=== PATIENT | male | born 1995 | race Caucasian/White ===

== ENCOUNTER 2016-09-22 08:52 | Emergency (ER) | payer MEDICAID ==
[2016-09-22 09:19] LABS: BASOPHILS 0.1 % (0.0-2.0); EOSINOPHILS 1.8 % (0-7); HEMOGLOBIN 14.7 g/dL (13.5-17.5); IMMATURE GRANULOCYTES 0.7 % (0-5); LYMPHOCYTES 13.9 % (15-50); MCH 29.3 pg (26.0-34.0); MCHC 34.2 g/dL (31.0-37.0); MCV 85.7 fL (80.0-100.0); MEAN PLATELET VOLUME 11.5 fL (7.4-10.4); MONOCYTES 8.4 % (2-11); NEUTROPHILS 75.1 % (40-80); RBC 5.02 10x6/uL (4.20-6.10); RDW 13.7 % (11.5-14.5); WBC 9.5 10x3/uL (4.8-10.8)
[2016-09-22 09:29] LABS: UDS - AMPHET POSITIVE QUAL (NEGATIVE); UDS - BARB NEGATIVE QUAL (NEGATIVE); UDS - BENZO NEGATIVE QUAL (NEGATIVE); UDS - COCAINE NEGATIVE QUAL (NEGATIVE); UDS - METH NEGATIVE QUAL (NEGATIVE); UDS - OPIATE NEGATIVE QUAL (NEGATIVE); UDS - PCP NEGATIVE QUAL (NEGATIVE); UDS - THC POSITIVE QUAL (NEGATIVE)
[2016-09-22 09:29] LABS: PLATELET COUNT 152 10x3/uL (130-400)
[2016-09-22 09:32] LABS: APPEARANCE CLEAR (CLEAR); BILIRUBIN NEGATIVE (NEGATIVE); COLOR YELLOW (YELLOW); GLUCOSE NEGATIVE (NEGATIVE); KETONE NEGATIVE (NEGATIVE); LEUKOCYTE ESTERASE NEGATIVE (NEGATIVE); NITRITE NEGATIVE (NEGATIVE); PROTEIN NEGATIVE (NEGATIVE); UROBILINOGEN NORMAL (NORMAL)
[2016-09-22 09:33] LABS: ALKALINE PHOSPHATASE 76 U/L (46-116); ALT (SGPT) 29 U/L (10-68); BILIRUBIN - TOTAL 0.34 mg/dL (0.2-1.3); CALC OSMOLALITY 282 mosm/kg (275-300); CALCIUM 9.2 mg/dL (8.5-10.1); CARBON DIOXIDE 27.1 mmol/L (21.0-32.0); CHLORIDE - SERUM 106 mmol/L (98-107); CREATININE - SERUM 0.9 mg/dL (0.6-1.3); GLUCOSE 106 mg/dL (74-106); POTASSIUM - SERUM 4.3 mmol/L (3.5-5.1); SODIUM 143 mmol/L (136-145); UREA NITROGEN 7 mg/dL (7-18); eGFR NON AFRICAN AMERICAN > 90 mL/min (90-120)
== END 2016-09-22 10:37 | disposition home or self-care (01) ==
LOC: D.ER 08:52
PROVIDERS: Emergency Medicine
DX: R56.9 Unspecified convulsions (principal); F17.200 Nicotine dependence, unspecified, uncomplicated

== ENCOUNTER 2016-09-28 15:39 | Emergency (ER) | payer OTHER, MEDICAID | END 2016-09-28 17:03 | disposition home or self-care (01) | LOC: D.ER 15:39 | DX: S16.1XXA Strain of muscle, fascia and tendon at neck level, initial encounter (principal); V49.40XA Driver injured in collision with unspecified motor vehicles in traffic accident, initial encounter; Y93.89 Activity, other specified; Y92.410 Unspecified street and highway as the place of occurrence of the external cause; S29.012A Strain of muscle and tendon of back wall of thorax, initial encounter ==

== ENCOUNTER 2016-10-26 19:04 | Emergency (ER) | payer MEDICAID | END 2016-10-26 22:34 | disposition home or self-care (01) | LOC: D.ER 19:04 | DX: K02.9 Dental caries, unspecified (principal); K08.89 Other specified disorders of teeth and supporting structures ==

== ENCOUNTER 2016-12-04 21:18 | Emergency (ER) | payer MEDICAID ==
[2016-12-04 23:09] LABS: BASOPHILS 0.2 % (0-2); EOSINOPHILS 2.8 % (0-7); HEMATOCRIT 40.9 % (42.0-54.0); HEMOGLOBIN 14.3 g/dL (13.5-17.5); IMMATURE GRANULOCYTES 0.2 % (0-5); LYMPHOCYTES 17.9 % (15-50); MCH 29.8 pg (26.0-34.0); MCV 85.2 fL (80.0-100.0); MEAN PLATELET VOLUME 10.8 fL (7.4-10.4); MONOCYTES 7.7 % (2-11); NEUTROPHILS 71.2 % (40-80); PLATELET COUNT 181 10x3/uL (130-400); RDW 13.4 % (11.5-14.5)
[2016-12-04 23:23] LABS: ALBUMIN 3.8 g/dL (3.4-5.0); ALKALINE PHOSPHATASE 85 U/L (46-116); ALT (SGPT) 26 U/L (10-68); CALC OSMOLALITY 276 mosm/kg (275-300); CALCIUM 8.8 mg/dL (8.5-10.1); CARBON DIOXIDE 31.6 mmol/L (21.0-32.0); CHLORIDE - SERUM 102 mmol/L (98-107); CREATININE - SERUM 0.9 mg/dL (0.6-1.3); GLUCOSE 102 mg/dL (74-106); POTASSIUM - SERUM 3.5 mmol/L (3.5-5.1); PROTEIN - SERUM 6.9 g/dL (6.4-8.2); SODIUM 140 mmol/L (136-145); UREA NITROGEN 7 mg/dL (7-18); eGFR NON AFRICAN AMERICAN > 90 mL/min (90-120)
== END 2016-12-05 00:35 | disposition home or self-care (01) ==
LOC: D.ER 21:18
PROVIDERS: Physician Assistant Medical
DX: G40.909 Epilepsy, unspecified, not intractable, without status epilepticus (principal); B35.4 Tinea corporis; F17.200 Nicotine dependence, unspecified, uncomplicated

== ENCOUNTER 2017-03-06 21:57 | Emergency (ER) | payer MEDICAID | END 2017-03-06 23:25 | disposition home or self-care (01) | LOC: D.ER 21:57 | DX: S60.031A Contusion of right middle finger without damage to nail, initial encounter (principal); S60.041A Contusion of right ring finger without damage to nail, initial encounter; X58.XXXA Exposure to other specified factors, initial encounter; Y93.89 Activity, other specified; Y92.89 Other specified places as the place of occurrence of the external cause; F17.200 Nicotine dependence, unspecified, uncomplicated ==

== ENCOUNTER 2017-03-14 21:51 | Emergency (ER) | payer MEDICAID ==
[2017-03-14 23:44] LABS: HEMATOCRIT 37.7 % (42.0-54.0); HEMOGLOBIN 13.3 g/dL (13.5-17.5); LYMPHOCYTES 29.9 % (15-50); MCH 29.3 pg (26.0-34.0); MCHC 35.3 g/dL (31.0-37.0); MEAN PLATELET VOLUME 11.2 fL (7.4-10.4); NEUTROPHILS 62.8 % (40-80); PLATELET COUNT 179 10x3/uL (130-400); RBC 4.54 10x6/uL (4.20-6.10)
[2017-03-14 23:52] LABS: ALBUMIN 3.8 g/dL (3.4-5.0); ANION GAP 10.5 mmol/L (8-16); BILIRUBIN - TOTAL 0.5 mg/dL (0.2-1.3); CALCIUM 8.5 mg/dL (8.5-10.1); CARBON DIOXIDE 29.9 mmol/L (21.0-32.0); CREATININE - SERUM 1.4 mg/dL (0.6-1.3); POTASSIUM - SERUM 3.4 mmol/L (3.5-5.1); PROTEIN - SERUM 6.6 g/dL (6.4-8.2)
[2017-03-14 23:56] LABS: APPEARANCE CLEAR (CLEAR); BILIRUBIN NEGATIVE (NEGATIVE); COLOR YELLOW (YELLOW); GLUCOSE NEGATIVE (NEGATIVE); KETONE NEGATIVE (NEGATIVE); LEUKOCYTE ESTERASE NEGATIVE (NEGATIVE); NITRITE NEGATIVE (NEGATIVE); PROTEIN TRACE mg/dL (NEGATIVE); UROBILINOGEN NORMAL (NORMAL)
[2017-03-14 23:57] LABS: BACTERIA NONE SEEN /hpf (NONE SEEN); EPITHELIAL CELLS 0-5 /hpf (0-5); WHITE CELLS - URINE NSEEN /hpf (0-5)
[2017-03-14 23:58] LABS: UDS - AMPHET POSITIVE QUAL (NEGATIVE); UDS - BARB NEGATIVE QUAL (NEGATIVE); UDS - BENZO NEGATIVE QUAL (NEGATIVE); UDS - COCAINE NEGATIVE QUAL (NEGATIVE); UDS - METH NEGATIVE QUAL (NEGATIVE); UDS - OPIATE NEGATIVE QUAL (NEGATIVE); UDS - PCP NEGATIVE QUAL (NEGATIVE); UDS - THC POSITIVE QUAL (NEGATIVE)
== END 2017-03-15 06:31 | disposition home or self-care (01) ==
LOC: D.ER 21:51
PROVIDERS: Emergency Medicine; Nurse Practitioner Acute Care
DX: F33.9 Major depressive disorder, recurrent, unspecified (principal); F15.10 Other stimulant abuse, uncomplicated; F12.10 Cannabis abuse, uncomplicated; R45.850 Homicidal ideations; F17.200 Nicotine dependence, unspecified, uncomplicated

== ENCOUNTER 2017-04-08 16:58 | Emergency (ER) | payer MEDICAID | END 2017-04-08 18:55 | disposition home or self-care (01) | LOC: D.ER 16:58 | DX: S99.921A Unspecified injury of right foot, initial encounter (principal); W20.8XXA Other cause of strike by thrown, projected or falling object, initial encounter; Y93.89 Activity, other specified; Y92.029 Unspecified place in mobile home as the place of occurrence of the external cause; M79.671 Pain in right foot; F17.200 Nicotine dependence, unspecified, uncomplicated ==

== ENCOUNTER 2017-06-08 17:11 | Emergency (ER) | payer MEDICAID | END 2017-06-08 18:50 | disposition home or self-care (01) | LOC: D.ER 17:11 | DX: S43.402A Unspecified sprain of left shoulder joint, initial encounter (principal); X58.XXXA Exposure to other specified factors, initial encounter; Y93.89 Activity, other specified; Y92.029 Unspecified place in mobile home as the place of occurrence of the external cause; K02.9 Dental caries, unspecified; K08.89 Other specified disorders of teeth and supporting structures; G40.909 Epilepsy, unspecified, not intractable, without status epilepticus; F17.200 Nicotine dependence, unspecified, uncomplicated ==

== ENCOUNTER 2017-07-10 00:42 | Emergency (ER) | payer MEDICAID | END 2017-07-10 01:01 | disposition home or self-care (01) | LOC: D.ER 00:42 | DX: K02.9 Dental caries, unspecified (principal); K08.89 Other specified disorders of teeth and supporting structures; K05.10 Chronic gingivitis, plaque induced ==

== ENCOUNTER 2017-08-10 19:42 | Emergency (ER) | payer MEDICAID ==
[2017-08-10 20:23] LABS: UDS - AMPHET NEGATIVE QUAL (NEGATIVE); UDS - BARB NEGATIVE QUAL (NEGATIVE); UDS - BENZO NEGATIVE QUAL (NEGATIVE); UDS - COCAINE NEGATIVE QUAL (NEGATIVE); UDS - OPIATE POSITIVE QUAL (NEGATIVE); UDS - PCP NEGATIVE QUAL (NEGATIVE); UDS - THC NEGATIVE QUAL (NEGATIVE)
[2017-08-10 20:38] LABS: BASOPHILS 0.2 % (0-2); EOSINOPHILS 3.8 % (0-7); HEMOGLOBIN 15.5 g/dL (13.5-17.5); IMMATURE GRANULOCYTES 0.3 % (0-5); LYMPHOCYTES 41.8 % (15-50); MCH 30.2 pg (26.0-34.0); MCHC 34.4 g/dL (31.0-37.0); MCV 87.7 fL (80.0-100.0); MEAN PLATELET VOLUME 12.1 fL (7.4-10.4); MONOCYTES 7.4 % (2-11); NEUTROPHILS 46.5 % (40-80); PLATELET COUNT 191 10x3/uL (130-400); RBC 5.13 10x6/uL (4.20-6.10); RDW 13.6 % (11.5-14.5); WBC 6.5 10x3/uL (4.8-10.8)
[2017-08-10 20:47] LABS: APPEARANCE CLEAR (CLEAR); BILIRUBIN NEGATIVE (NEGATIVE); COLOR YELLOW (YELLOW); GLUCOSE NEGATIVE (NEGATIVE); KETONE NEGATIVE (NEGATIVE); NITRITE NEGATIVE (NEGATIVE); PROTEIN NEGATIVE (NEGATIVE); SPECIFIC GRAVITY 1.025 (1.005-1.020); UROBILINOGEN NORMAL (NORMAL)
[2017-08-10 20:50] LABS: BACTERIA FEW /hpf (NONE SEEN)
[2017-08-10 21:00] LABS: ALKALINE PHOSPHATASE 63 U/L (46-116); ALT (SGPT) 15 U/L (10-68); BILIRUBIN - TOTAL 0.27 mg/dL (0.2-1.3); CALC OSMOLALITY 273 mosm/kg (275-300); CALCIUM 8.7 mg/dL (8.5-10.1); CARBON DIOXIDE 28.4 mmol/L (21.0-32.0); CHLORIDE - SERUM 103 mmol/L (98-107); CREATININE - SERUM 1.1 mg/dL (0.6-1.3); GLUCOSE 92 mg/dL (74-106); POTASSIUM - SERUM 3.3 mmol/L (3.5-5.1); PROTEIN - SERUM 6.7 g/dL (6.4-8.2); SODIUM 137 mmol/L (136-145); UREA NITROGEN 13 mg/dL (7-18); eGFR NON AFRICAN AMERICAN 88 mL/min (90-120)
== END 2017-08-10 21:58 | disposition home or self-care (01) ==
LOC: D.ER 19:42
PROVIDERS: Emergency Medicine
DX: G40.409 Other generalized epilepsy and epileptic syndromes, not intractable, without status epilepticus (principal); Z91.14 Patient's other noncompliance with medication regimen; S09.90XA Unspecified injury of head, initial encounter; W19.XXXA Unspecified fall, initial encounter; Y93.89 Activity, other specified; Y92.019 Unspecified place in single-family (private) house as the place of occurrence of the external cause; S16.1XXA Strain of muscle, fascia and tendon at neck level, initial encounter; S00.03XA Contusion of scalp, initial encounter; F17.200 Nicotine dependence, unspecified, uncomplicated

== ENCOUNTER 2017-08-24 12:04 | Emergency (ER) | payer MEDICAID | END 2017-08-24 16:16 | disposition home or self-care (01) | LOC: D.ER 12:04 | DX: K08.89 Other specified disorders of teeth and supporting structures (principal); K02.9 Dental caries, unspecified; K05.10 Chronic gingivitis, plaque induced; S02.5XXA Fracture of tooth (traumatic), initial encounter for closed fracture; X58.XXXA Exposure to other specified factors, initial encounter; Y93.89 Activity, other specified; Y92.019 Unspecified place in single-family (private) house as the place of occurrence of the external cause; F17.200 Nicotine dependence, unspecified, uncomplicated ==

== ENCOUNTER 2017-09-12 19:05 | Emergency (ER) | payer MEDICAID ==
[2017-11-11 11:04] VITALS: BMI 21.0
== END 2017-09-12 22:45 | disposition home or self-care (01) ==
LOC: D.ER 19:05
DX: S91.104A Unspecified open wound of right lesser toe(s) without damage to nail, initial encounter (principal); W34.00XA Accidental discharge from unspecified firearms or gun, initial encounter; Y93.89 Activity, other specified; Y92.821 Forest as the place of occurrence of the external cause; S92.521A Displaced fracture of middle phalanx of right lesser toe(s), initial encounter for closed fracture; S92.531A Displaced fracture of distal phalanx of right lesser toe(s), initial encounter for closed fracture; F17.200 Nicotine dependence, unspecified, uncomplicated

== ENCOUNTER 2017-09-13 21:22 | Emergency (ER) | payer MEDICAID ==
[2017-11-11 11:04] VITALS: BMI 21.0
== END 2017-09-13 23:51 | disposition home or self-care (01) ==
LOC: D.ER 21:22
DX: S91.311D Laceration without foreign body, right foot, subsequent encounter (principal); L08.9 Local infection of the skin and subcutaneous tissue, unspecified; X58.XXXD Exposure to other specified factors, subsequent encounter

== ENCOUNTER 2017-09-25 17:17 | Emergency (ER) | payer MEDICAID ==
[2017-11-11 11:04] VITALS: BMI 21.0
== END 2017-09-25 19:24 | disposition home or self-care (01) ==
LOC: D.ER 17:17
DX: S99.921D Unspecified injury of right foot, subsequent encounter (principal); X58.XXXD Exposure to other specified factors, subsequent encounter; M79.674 Pain in right toe(s); F17.200 Nicotine dependence, unspecified, uncomplicated

== ENCOUNTER → 2017-10-30 14:13 | Outpatient (CLI) | payer MEDICAID ==
[~2017-10-30 14:13] MED LIST: HYDROCODONE-APA1 TAB PO; KEPPRA250 MG PO; KEPPRA750 MG PO
[2017-11-11 11:04] VITALS: BMI 21.0
== END | disposition home or self-care (01) ==
LOC: D.CT 10-27 13:30
DX: R22.41 Localized swelling, mass and lump, right lower limb (principal); T14.8XXA Other injury of unspecified body region, initial encounter; S92.531G Displaced fracture of distal phalanx of right lesser toe(s), subsequent encounter for fracture with delayed healing; X58.XXXA Exposure to other specified factors, initial encounter; Y93.89 Activity, other specified; Y92.89 Other specified places as the place of occurrence of the external cause

== ENCOUNTER 2017-11-10 07:49 | Inpatient (IN) | payer MEDICAID ==
[~2017-11-10] VITALS: Ht 182.9 cm; Wt 70.3 kg
[2017-11-10 10:21] LABS: BASOPHILS 0.1 % (0-2); EOSINOPHILS 0.6 % (0-7); HEMATOCRIT 44.4 % (42.0-54.0); HEMOGLOBIN 15.5 g/dL (13.5-17.5); IMMATURE GRANULOCYTES 0.3 % (0-5); MCH 30.5 pg (26.0-34.0); MCHC 34.9 g/dL (31.0-37.0); MCV 87.2 fL (80.0-100.0); MEAN PLATELET VOLUME 10.5 fL (7.4-10.4); MONOCYTES 8.8 % (2-11); NEUTROPHILS 68.2 % (40-80); PLATELET COUNT 220 10x3/uL (130-400); RBC 5.09 10x6/uL (4.20-6.10); RDW 13.5 % (11.5-14.5); WBC 7.1 10x3/uL (4.8-10.8)
[2017-11-10 10:36] LABS: ALKALINE PHOSPHATASE 71 U/L (46-116); ALT (SGPT) 23 U/L (10-68); CALC OSMOLALITY 281 mosm/kg (275-300); CALCIUM 8.9 mg/dL (8.5-10.1); CARBON DIOXIDE 27.5 mmol/L (21.0-32.0); CHLORIDE - SERUM 107 mmol/L (98-107); GLUCOSE 99 mg/dL (74-106); POTASSIUM - SERUM 3.7 mmol/L (3.5-5.1); PROTEIN - SERUM 6.9 g/dL (6.4-8.2); SODIUM 141 mmol/L (136-145); UREA NITROGEN 14 mg/dL (7-18); eGFR NON AFRICAN AMERICAN > 90 mL/min (90-120)
[2017-11-10 19:48] VITALS: BP 136/72
[2017-11-10] MEDS ORDERED: KEPPRA250 MG PO (20:00)
[2017-11-10] MEDS ORDERED: HYDROCODONE-APA1 TAB PO (20:01)
[2017-11-10 21:50] VITALS: BP 145/99; BMI 21.0
[2017-11-10 23:54] VITALS: BP 107/52
[2017-11-11 04:29] VITALS: BP 131/62
[2017-11-11 08:40] VITALS: BP 134/89
[2017-11-11 10:15] VITALS: BMI 21.0
[2017-11-11] MEDS ORDERED: KEPPRA750 MG PO (11:00)
[2017-11-11 11:04] VITALS: Ht 182.9 cm; Wt 70.3 kg
[2017-11-11 12:36] VITALS: BP 149/92
== END 2017-11-11 12:45 | disposition home or self-care (01) | DRG 556 ==
LOC: D.ER 07:49 → D.EDHOLD 12:18 → D.MS 12:18 → D.EDHOLD 15:34 → D.MS 18:02
PROVIDERS: Emergency Medicine
DX: M79.671 Pain in right foot (principal)

== ENCOUNTER 2017-11-19 02:18 | Emergency (ER) | payer MEDICAID ==
[2017-11-11 11:04] VITALS: BMI 21.0
== END 2017-11-19 03:11 | disposition home or self-care (01) ==
LOC: D.ER 02:18
DX: H66.91 Otitis media, unspecified, right ear (principal)

== ENCOUNTER 2017-11-19 18:24 | Emergency (ER) | payer MEDICAID ==
[2017-11-11 11:04] VITALS: BMI 21.0
== END 2017-11-19 21:40 | disposition home or self-care (01) ==
LOC: D.ER 18:24
DX: H72.91 Unspecified perforation of tympanic membrane, right ear (principal); R05 Cough; R50.9 Fever, unspecified; F17.200 Nicotine dependence, unspecified, uncomplicated

== ENCOUNTER 2018-01-01 20:39 | Emergency (ER) | payer MEDICAID ==
[~2018-01-01] VITALS: Ht 182.9 cm; Wt 72.6 kg
[2018-01-01 21:15] VITALS: Ht 182.9 cm; Wt 72.6 kg
[2018-01-01 22:16] VITALS: BP 120/77
[2018-02-08] MEDS ORDERED: KEPPRA500 MG PO
[2018-02-08] MEDS ORDERED: NORCO 7.5/325 T1 TA1 PO
== END 2018-01-01 22:18 | disposition home or self-care (01) ==
LOC: D.ER 20:39
DX: Z00.00 Encounter for general adult medical examination without abnormal findings (principal); F17.200 Nicotine dependence, unspecified, uncomplicated; F90.9 Attention-deficit hyperactivity disorder, unspecified type

== ENCOUNTER 2018-02-08 21:16 | Emergency (ER) | payer MEDICAID ==
[~2018-02-08] VITALS: Ht 182.9 cm; Wt 65.9 kg
[~2018-02-08 21:16] MED LIST changes: +KEPPRA500 MG PO; +NORCO 7.5/325 T1 TA1 PO
[2018-02-08 21:20] VITALS: Ht 182.9 cm; Wt 65.9 kg
[2018-02-09 00:08] LABS: HEMATOCRIT 44.6 % (42.0-54.0); HEMOGLOBIN 15.4 g/dL (13.5-17.5); LYMPHOCYTES 10.1 % (15-50); MCH 29.4 pg (26.0-34.0); MCHC 34.5 g/dL (31.0-37.0); MCV 85.1 fL (80.0-100.0); MEAN PLATELET VOLUME 11.1 fL (7.4-10.4); NEUTROPHILS 85.6 % (40-80); PLATELET COUNT 216 10x3/uL (130-400); RBC 5.24 10x6/uL (4.20-6.10); RDW 13.1 % (11.5-14.5); WBC 12.3 10x3/uL (4.8-10.8)
[2018-02-09 00:23] LABS: ALBUMIN 3.9 g/dL (3.4-5.0); ALKALINE PHOSPHATASE 70 U/L (46-116); ALT (SGPT) 17 U/L (10-68); BILIRUBIN - TOTAL 0.29 mg/dL (0.2-1.3); CALC OSMOLALITY 282 mosm/kg (275-300); CALCIUM 8.6 mg/dL (8.5-10.1); CHLORIDE - SERUM 105 mmol/L (98-107); CREATINE KINASE 269 UL (21-232); GLUCOSE 102 mg/dL (74-106); POTASSIUM - SERUM 3.8 mmol/L (3.5-5.1); PROTEIN - SERUM 7.3 g/dL (6.4-8.2); SODIUM 142 mmol/L (136-145); UREA NITROGEN 13 mg/dL (7-18); eGFR NON AFRICAN AMERICAN > 90 mL/min (90-120)
[2018-02-09 00:25] LABS: CKMB 2.8 U/L (0.0-3.6)
[2018-02-09 01:30] VITALS: BP 140/91
== END 2018-02-09 01:31 | disposition home or self-care (01) ==
LOC: D.ER 21:16
PROVIDERS: Emergency Medicine
DX: S09.90XA Unspecified injury of head, initial encounter (principal); Y04.2XXA Assault by strike against or bumped into by another person, initial encounter; Y93.89 Activity, other specified; Y92.89 Other specified places as the place of occurrence of the external cause; S49.92XA Unspecified injury of left shoulder and upper arm, initial encounter; S69.91XA Unspecified injury of right wrist, hand and finger(s), initial encounter; S00.03XA Contusion of scalp, initial encounter; G40.909 Epilepsy, unspecified, not intractable, without status epilepticus; F17.200 Nicotine dependence, unspecified, uncomplicated

== ENCOUNTER 2018-03-08 20:31 | Emergency (ER) | payer MEDICAID ==
[~2018-03-08] VITALS: Ht 182.9 cm; Wt 63.6 kg
[2018-03-08 20:44] VITALS: Ht 182.9 cm; Wt 63.6 kg
[2018-03-08] MEDS ORDERED: NORCO 7.5/325 T1 TA1 PO (22:14)
[2018-03-08 22:18] VITALS: BP 136/87
== END 2018-03-08 22:23 | disposition home or self-care (01) ==
LOC: D.ER 20:31
DX: S49.91XA Unspecified injury of right shoulder and upper arm, initial encounter (principal); W18.30XA Fall on same level, unspecified, initial encounter; Y93.89 Activity, other specified; Y92.019 Unspecified place in single-family (private) house as the place of occurrence of the external cause; S50.01XA Contusion of right elbow, initial encounter; G40.909 Epilepsy, unspecified, not intractable, without status epilepticus; F17.200 Nicotine dependence, unspecified, uncomplicated

== ENCOUNTER 2018-03-30 15:20 | Emergency (ER) | payer MEDICAID ==
[~2018-03-30] VITALS: Ht 182.9 cm; Wt 68.2 kg
[2018-03-30 16:03] VITALS: BP 141/89; Ht 182.9 cm; Wt 68.2 kg
[2018-03-30] MEDS ORDERED: NORCO 10-325 TA1 TAB PO (16:57)
[2018-03-30] MEDS ORDERED: OMNICEF300 MG PO (16:57)
== END 2018-03-30 17:12 | disposition home or self-care (01) ==
LOC: D.ER 15:20
DX: H66.91 Otitis media, unspecified, right ear (principal); H72.91 Unspecified perforation of tympanic membrane, right ear; J01.90 Acute sinusitis, unspecified; S02.5XXA Fracture of tooth (traumatic), initial encounter for closed fracture; X58.XXXA Exposure to other specified factors, initial encounter; Y93.9 Activity, unspecified; Y92.9 Unspecified place or not applicable; K08.89 Other specified disorders of teeth and supporting structures; R09.89 Other specified symptoms and signs involving the circulatory and respiratory systems; R05 Cough; F17.200 Nicotine dependence, unspecified, uncomplicated

== ENCOUNTER 2018-04-01 00:49 | Emergency (ER) | payer MEDICAID ==
[~2018-04-01] VITALS: Ht 182.9 cm; Wt 68.2 kg
[~2018-04-01 00:49] MED LIST changes: +NORCO 10-325 TA1 TAB PO; +OMNICEF300 MG PO
[2018-04-01 00:52] VITALS: Ht 182.9 cm; Wt 68.2 kg
[2018-04-01 01:21] VITALS: BP 163/101
== END 2018-04-01 01:23 | disposition home or self-care (01) ==
LOC: D.ER 00:49
DX: K02.9 Dental caries, unspecified (principal); K08.89 Other specified disorders of teeth and supporting structures; G40.909 Epilepsy, unspecified, not intractable, without status epilepticus; F17.200 Nicotine dependence, unspecified, uncomplicated

== ENCOUNTER 2018-04-04 07:52 | Emergency (ER) | payer MEDICAID ==
[~2018-04-04] VITALS: Ht 182.9 cm; Wt 68.2 kg
[2018-04-04 08:08] VITALS: BP 136/87; Ht 182.9 cm; Wt 68.2 kg
[2018-04-04] MEDS ORDERED: TORADOL10 MG PO (10:16)
[2018-04-04] MEDS ORDERED: CLEOCIN HCL300 MG PO (10:16)
== END 2018-04-04 10:40 | disposition home or self-care (01) ==
LOC: D.ER 07:52
DX: K02.9 Dental caries, unspecified (principal); K08.89 Other specified disorders of teeth and supporting structures; H92.01 Otalgia, right ear; G40.909 Epilepsy, unspecified, not intractable, without status epilepticus; F17.200 Nicotine dependence, unspecified, uncomplicated

== ENCOUNTER 2018-04-26 14:45 | Emergency (ER) | payer MEDICAID ==
[~2018-04-26] VITALS: Ht 182.9 cm; Wt 68.2 kg
[~2018-04-26 14:45] MED LIST changes: +CLEOCIN HCL300 MG PO; +TORADOL10 MG PO
[2018-04-26 14:49] VITALS: BP 162/93; Ht 182.9 cm; Wt 68.2 kg
[2018-04-26] MEDS ORDERED: NAPROXEN250 MG PO (15:55)
[2018-04-26] MEDS ORDERED: CLEOCIN HCL300 MG PO (15:55)
== END 2018-04-26 16:23 | disposition home or self-care (01) ==
LOC: D.ER 14:45
DX: K04.7 Periapical abscess without sinus (principal); R22.9 Localized swelling, mass and lump, unspecified; G40.909 Epilepsy, unspecified, not intractable, without status epilepticus; F17.200 Nicotine dependence, unspecified, uncomplicated

== ENCOUNTER 2018-06-05 23:04 | Emergency (ER) | payer MEDICAID ==
[~2018-06-05] VITALS: Ht 182.9 cm; Wt 75.0 kg
[~2018-06-05 23:04] MED LIST changes: +NAPROXEN250 MG PO
[2018-06-05 23:30] VITALS: Ht 182.9 cm; Wt 75.0 kg
[2018-06-06] MEDS ORDERED: EC-NAPROSYN500 MG PO (00:03)
[2018-06-06 00:19] VITALS: BP 140/90
== END 2018-06-06 00:15 | disposition home or self-care (01) ==
LOC: D.ER 23:04
DX: S90.32XA Contusion of left foot, initial encounter (principal); W20.8XXA Other cause of strike by thrown, projected or falling object, initial encounter; Y93.89 Activity, other specified; Y92.89 Other specified places as the place of occurrence of the external cause; G40.909 Epilepsy, unspecified, not intractable, without status epilepticus; F17.200 Nicotine dependence, unspecified, uncomplicated

== ENCOUNTER 2019-01-14 23:10 | Emergency (ER) | payer MEDICAID ==
[~2019-01-14] VITALS: Ht 182.9 cm; Wt 84.1 kg
[~2019-01-14 23:10] MED LIST changes: +EC-NAPROSYN500 MG PO
[2019-01-14 23:18] VITALS: Ht 182.9 cm; Wt 84.1 kg
[2019-01-15 00:20] LABS: HEMATOCRIT 49.4 % (42.0-54.0); HEMOGLOBIN 17.8 g/dL (13.5-17.5); MCH 30.3 pg (26.0-34.0); MEAN PLATELET VOLUME 12.3 fL (7.4-10.4); PLATELET COUNT 192 10x3/uL (130-400); RBC 5.88 10x6/uL (4.20-6.10); RDW 13.6 % (11.5-14.5)
[2019-01-15 00:34] LABS: ALBUMIN 4.8 g/dL (3.4-5.0); ALKALINE PHOSPHATASE 94 U/L (46-116); ALT (SGPT) 30 U/L (10-68); BILIRUBIN - TOTAL 0.34 mg/dL (0.2-1.3); CALC OSMOLALITY 286 mosm/kg (275-300); CALCIUM 9.2 mg/dL (8.5-10.1); CARBON DIOXIDE 26.1 mmol/L (21.0-32.0); CHLORIDE - SERUM 104 mmol/L (98-107); CKMB 4.1 U/L (0.0-3.6); CREATINE KINASE 423 UL (21-232); CREATININE - SERUM 1.3 mg/dL (0.6-1.3); GLUCOSE 96 mg/dL (74-106); MAGNESIUM - SERUM 2.3 mg/dL (1.8-2.4); PROTEIN - SERUM 8.2 g/dL (6.4-8.2); SODIUM 142 mmol/L (136-145); UREA NITROGEN 23 mg/dL (7-18); eGFR NON AFRICAN AMERICAN 71 mL/min (90-120)
[2019-01-15 00:40] LABS: TROPONIN-I < 0.017 ng/mL (0.000-0.060)
[2019-01-15 00:48] LABS: APPEARANCE CLEAR (CLEAR); BILIRUBIN NEGATIVE (NEGATIVE); COLOR YELLOW (YELLOW); GLUCOSE NEGATIVE (NEGATIVE); KETONE NEGATIVE (NEGATIVE); NITRITE NEGATIVE (NEGATIVE); PROTEIN TRACE mg/dL (NEGATIVE); UROBILINOGEN NORMAL (NORMAL)
[2019-01-15 00:50] LABS: BACTERIA MODERATE /hpf (NONE SEEN); EPITHELIAL CELLS 0-5 /hpf (0-5); RED CELLS - URINE 0-5 /hpf (0-5); WHITE CELLS - URINE 0-5 /hpf (0-5)
[2019-01-15 00:53] LABS: UDS - AMPHET POSITIVE QUAL (NEGATIVE); UDS - BARB NEGATIVE QUAL (NEGATIVE); UDS - BENZO POSITIVE QUAL (NEGATIVE); UDS - COCAINE POSITIVE QUAL (NEGATIVE); UDS - OPIATE NEGATIVE QUAL (NEGATIVE); UDS - PCP NEGATIVE QUAL (NEGATIVE); UDS - THC POSITIVE QUAL (NEGATIVE)
[2019-01-15] MEDS ORDERED: KEPPRA500 MG PO (01:08)
[2019-01-15 01:11] LABS: LYMPHOCYTES 17 % (15-50); MONOCYTES 2 % (2-11); NEUTROPHILS 80 % (40-80); PLATELET ESTIMATE DECREASED
[2019-01-15 01:23] VITALS: BP 182/97
== END 2019-01-15 01:23 | disposition home or self-care (01) ==
LOC: D.ER 23:10
PROVIDERS: Family Medicine
DX: G40.909 Epilepsy, unspecified, not intractable, without status epilepticus (principal); F15.19 Other stimulant abuse with unspecified stimulant-induced disorder

== ENCOUNTER 2019-11-02 21:16 | Emergency (ER) | payer MEDICAID ==
[~2019-11-02] VITALS: Ht 182.9 cm; Wt 77.3 kg
[2019-11-02 21:23] VITALS: Ht 182.9 cm; Wt 77.3 kg
[2019-11-02] MEDS ORDERED: KEFLEX500 MG PO (21:47)
[2019-11-02] MEDS ORDERED: NAPROSYN500 MG PO (21:47)
[2019-11-02 21:59] VITALS: BP 125/77
== END 2019-11-02 22:00 | disposition home or self-care (01) ==
LOC: D.ER 21:16
DX: S61.214A Laceration without foreign body of right ring finger without damage to nail, initial encounter (principal); W31.89XA Contact with other specified machinery, initial encounter; Y93.9 Activity, unspecified; Y92.9 Unspecified place or not applicable

== ENCOUNTER 2020-01-27 14:21 | Emergency (ER) | payer OTHER ==
[~2020-01-27] VITALS: Ht 182.9 cm; Wt 79.5 kg
[~2020-01-27 14:21] MED LIST changes: +KEFLEX500 MG PO; +NAPROSYN500 MG PO
[2020-01-27 14:28] VITALS: Ht 182.9 cm; Wt 79.5 kg
[2020-01-27] MEDS ORDERED: KEFLEX500 MG PO (17:00)
[2020-01-27] MEDS ORDERED: VOLTAREN75 MG PO (17:00)
[2020-01-27 17:43] VITALS: BP 129/73
== END 2020-01-27 17:44 | disposition home or self-care (01) ==
LOC: D.ER 14:21
DX: S91.312A Laceration without foreign body, left foot, initial encounter (principal); W45.8XXA Other foreign body or object entering through skin, initial encounter; Y93.9 Activity, unspecified; Y92.9 Unspecified place or not applicable

== ENCOUNTER 2020-03-27 07:22 | Emergency (ER) | payer OTHER ==
[~2020-03-27] VITALS: Ht 182.9 cm; Wt 79.5 kg
[~2020-03-27 07:22] MED LIST changes: +VOLTAREN75 MG PO
[2020-03-27 07:29] VITALS: BP 145/82; Ht 182.9 cm; Wt 79.5 kg
[2020-03-27 08:34] LABS: ANION GAP 14.2 mmol/L (8-16); CALCIUM 8.7 mg/dL (8.5-10.1); CARBON DIOXIDE 23.2 mmol/L (21.0-32.0); CREATININE - SERUM 1.6 mg/dL (0.6-1.3); POTASSIUM - SERUM 3.4 mmol/L (3.5-5.1)
[2020-03-27 08:39] LABS: BASOPHILS 0.1 % (0-2); EOSINOPHILS 0.9 % (0-7); HEMOGLOBIN 15.2 g/dL (13.5-17.5); IMMATURE GRANULOCYTES 0.3 % (0-5); LYMPHOCYTES 10.2 % (15-50); MCH 29.5 pg (26.0-34.0); MCHC 33.8 g/dL (31.0-37.0); MCV 87.2 fL (80.0-100.0); MEAN PLATELET VOLUME 11.4 fL (7.4-10.4); MONOCYTES 10.6 % (2-11); NEUTROPHILS 77.9 % (40-80); PLATELET COUNT 189 10x3/uL (130-400); RBC 5.16 10x6/uL (4.20-6.10); RDW 13.3 % (11.5-14.5); WBC 10.9 10x3/uL (4.8-10.8)
[2020-03-27 08:40] LABS: ALBUMIN 3.8 g/dL (3.4-5.0); BILIRUBIN - TOTAL 0.23 mg/dL (0.2-1.3); C-REACTIVE PROTEIN 4.1 mg/dL (0.0-0.9); PROTEIN - SERUM 6.8 g/dL (6.4-8.2)
[2020-03-27] MEDS ORDERED: FLUTICASONE PRO16 GM NASAL (11:04)
[2020-03-27] MEDS ORDERED: CLEOCIN HCL300 MG PO (11:04)
== END 2020-03-27 11:35 | disposition home or self-care (01) ==
LOC: D.ER 07:22
PROVIDERS: Family Medicine
DX: R22.9 Localized swelling, mass and lump, unspecified (principal); J01.90 Acute sinusitis, unspecified; Z72.0 Tobacco use; R09.81 Nasal congestion

== ENCOUNTER 2020-10-24 07:42 | Observation (INO) | payer OTHER ==
[~2020-10-24] VITALS: Ht 182.9 cm; Wt 72.7 kg
[2020-10-24] VITALS (13 sets, daily range): BP systolic 91–127; BP diastolic 50–83; Ht 182.9 cm; Wt 72.7 kg
[~2020-10-24 07:42] MED LIST changes: +FLUTICASONE PRO16 GM NASAL; +HYDROCODON-ACE1 EAC7 PO
[2020-10-24 08:01] LABS: BASOPHILS 0.3 % (0-2); EOSINOPHILS 2.5 % (0-7); HEMATOCRIT 47.8 % (42.0-54.0); HEMOGLOBIN 16.1 g/dL (13.5-17.5); IMMATURE GRANULOCYTES 1.6 % (0-5); LYMPHOCYTE ABS# 1.71 10x3/uL (1.32-3.57); LYMPHOCYTES 24.1 % (15-50); MCH 29.1 pg (26.0-34.0); MCHC 33.7 g/dL (31.0-37.0); MCV 86.4 fL (80.0-100.0); MONOCYTES 11.1 % (2-11); NEUTROPHIL ABS# 4.28 10x3/uL (1.78-5.38); NEUTROPHILS 60.4 % (40-80); RBC 5.53 10x6/uL (4.20-6.10); RDW 13.4 % (11.5-14.5); WBC 7.1 10x3/uL (4.8-10.8)
[2020-10-24 08:02] LABS: PLATELET COUNT 263 10x3/uL (130-400)
--- NOTE | 2020-10-24 08:06 | NUR ---
CALL TO POISON CONTROL ON PT. SHE STATES TO HAVE PT SIP ON WATER TO SEE HOW HE TOLERATES IT , PROPABLE GI CONSULT FOR THIS PT. DUE TO CAUSTIC NATURE OF SUBSTANCES HE MIGHT HAVE DRANK. PT HEAVING IN TRIAGE STATES HE VOMITED A LOT AT HOME, THAT IS WHAT WOKE HIM UP.
--- NOTE | 2020-10-24 08:09 | NUR ---
PATIENT GIVEN 2ND CUP OF WATER FOR PO CHALLENGE. TOLERATING WELL. NO AIRWAY COMPLICATIONS OR TROUBLE BREATHING. GCS 15. REPORTS NUMBNESS TO TONGUE AND MOUTH, AND PAIN TO THROAT AND STOMACH. ALSO STATES HE WAS VOMITING CHUNKY EMESIS AT HOME. DENIES COFFEE GROUNDS OR BLOOD.
[2020-10-24 08:15] LABS: ANION GAP 12.1 mmol/L (8-16); CALCIUM 9.3 mg/dL (8.5-10.1); CARBON DIOXIDE 29.9 mmol/L (21.0-32.0); CREATININE - SERUM 1.3 mg/dL (0.6-1.3)
[2020-10-24 08:19] LABS: UDS - AMPHET POSITIVE QUAL (NEGATIVE); UDS - BARB NEGATIVE QUAL (NEGATIVE); UDS - BENZO NEGATIVE QUAL (NEGATIVE); UDS - COCAINE NEGATIVE QUAL (NEGATIVE); UDS - OPIATE NEGATIVE QUAL (NEGATIVE); UDS - PCP NEGATIVE QUAL (NEGATIVE); UDS - THC POSITIVE QUAL (NEGATIVE)
[2020-10-24 08:19] LABS: ALBUMIN 4.1 g/dL (3.4-5.0); BILIRUBIN - TOTAL 0.44 mg/dL (0.2-1.3); MAGNESIUM - SERUM 2.3 mg/dL (1.8-2.4); PROTEIN - SERUM 7.6 g/dL (6.4-8.2)
[2020-10-24 08:20] LABS: BILIRUBIN NEGATIVE (NEGATIVE); KETONE NEGATIVE (NEGATIVE); NITRITE NEGATIVE (NEGATIVE); UROBILINOGEN NORMAL mg/dL (< 2)
[2020-10-24 08:21] LABS: SQUAMOUS EPITHELIAL 0-5 HPF (0-4); WHITE CELLS - URINE 0-5 HPF (0-1)
--- NOTE | 2020-10-24 09:02 | NUR ---
PATIENT APPEARS DROWSY, PERRLA 4MM, DENIES RECREATIONAL DRUG USE. STATES ONLY HOME MEDICATION TO BE KEPPRA DUE TO HX OF SEIZURES. NAD. AIRWAY PATENT NO DIFFICULTY BREATHING.
--- NOTE | 2020-10-24 09:21 | NUR ---
REPORT GIVEN TO ICU FOR BED 2304.
--- NOTE | 2020-10-24 09:33 | NUR ---
PATIENT TAKEN TO ICU ROOM 2304 AT 0925. STABLE, VITALS SIGNS WNL, GCS 15, NAD. BELONGINGS TAKEN WITH PATIENT INCLUDING BLACK [place], SWEAT PANTS, TENNIS SHOES. NO WALLET OR PHONE.
--- NOTE | 2020-10-24 10:26 | NUR ---
REC'D PT TO ICU. ALL MONITORING EQUIPMENT ATTACHED AND ALARMS SET. VSS, NSR PEAKED T WAVE NOTED ON ECG. DR LOPEZ HERE. PT GRANDMOTHER IN ROOM.
--- NOTE | 2020-10-24 19:26 | NUR ---
RECEIVED BEDSIDE REPORT. ROUNDING COMPLETE. PATIENT IS ALERT AND ORIENTED, RESTING COMFORTABLY IN BED. RESPIRATIONS ARE EVEN AND UNLABORED. NO S/S OF DISTRESS. NO C/O PAIN. CALL LIGHT WITHIN REACH. WILL CPOC.
--- NOTE | 2020-10-24 23:15 | NUR ---
ASSUMED CARE OF PATIENT. ASSESSMENT PERFORMED AT THIS TIME. PATIENT REQUESTING SOMETHING FOR ANXIETY.
[2020-10-25] VITALS (10 sets, daily range): BP systolic 96–127; BP diastolic 52–79
--- NOTE | 2020-10-25 | NUR ---
CALL TO PROVIDER, MEDS OBTAINED FOR INSOMNIA. ADMINISTERED BENADRYL 25 MG IVP PER ORDER. PATIENT TOLERATED WELL. PROVIDED EDUCATION ABOUT EGD TO PATIENT. PATIENT COMFORTED BY INFORMATION PROVIDED. DENIES FURTHER NEEDS AT THIS TIME. REMINIDED OF NPO STATUS, PATIENT VERBALIZES UNDERSTANDING. REMOVED LIQUIDS FROM ROOM. RESTING WHEN EXITING. CPOC.
--- NOTE | 2020-10-25 02:29 | NUR ---
PATIENT RESTING AT THIS TIME. NO NEEDS OBSERVED AT THIS TIME.
[2020-10-25 04:07] LABS: BASOPHILS 0.4 % (0-2); EOSINOPHILS 4.7 % (0-7); HEMATOCRIT 41.4 % (42.0-54.0); HEMOGLOBIN 13.4 g/dL (13.5-17.5); IMMATURE GRANULOCYTES 0.8 % (0-5); LYMPHOCYTE ABS# 1.95 10x3/uL (1.32-3.57); LYMPHOCYTES 36.7 % (15-50); MCH 28.2 pg (26.0-34.0); MCHC 32.4 g/dL (31.0-37.0); MCV 87.2 fL (80.0-100.0); MEAN PLATELET VOLUME 10.9 fL (7.4-10.4); MONOCYTES 10.7 % (2-11); NEUTROPHIL ABS# 2.48 10x3/uL (1.78-5.38); NEUTROPHILS 46.7 % (40-80); RBC 4.75 10x6/uL (4.20-6.10); RDW 13.5 % (11.5-14.5)
[2020-10-25 04:10] LABS: PLATELET COUNT 196 10x3/uL (130-400); WBC 5.3 10x3/uL (4.8-10.8)
[2020-10-25 04:23] LABS: ALKALINE PHOSPHATASE 56 U/L (30-120); ALT (SGPT) 22 U/L (10-68); BILIRUBIN - TOTAL 0.48 mg/dL (0.2-1.3); CALC OSMOLALITY 276 mosm/kg (275-300); CALCIUM 8.3 mg/dL (8.5-10.1); CARBON DIOXIDE 26.4 mmol/L (21.0-32.0); CHLORIDE - SERUM 108 mmol/L (98-107); CREATININE - SERUM 1.1 mg/dL (0.6-1.3); GLUCOSE 84 mg/dL (74-106); SODIUM 139 mmol/L (136-145); UREA NITROGEN 13 mg/dL (7-18); eGFR NON AFRICAN AMERICAN 85 mL/min (90-120)
[2020-10-25 04:34] LABS: ALBUMIN 2.9 g/dL (3.4-5.0); PROTEIN - SERUM 5.6 g/dL (6.4-8.2)
--- NOTE | 2020-10-25 06:47 | NUR ---
REMAINS WITHOUT DISTRES. CONTINUAL MONITORING REMAINS IN PLACE. CPOC.
[2020-10-25] MEDS ORDERED: PROTONIX40 MG PO (11:10)
--- NOTE | 2020-10-25 13:45 | NUR ---
PT DC HOME WITH RX CALLED TO POC.
--- NOTE | 2020-10-26 10:50 | OP ---
PATIENT NAME: ENID BANKS MEDICAL RECORD: [id number] :89 LOCATION:.[facility] D.2304 ADMISSION DATE:10/24/20 SURGEON: GHANSHYAM HILL MD DATE OF OPERATION: 10/25/2020 PREOPERATIVE DIAGNOSIS: Accidental caustic ingestion. POSTOPERATIVE DIAGNOSES: 1. Probable no caustic ingestion occurred. 2. Moderate antral gastritis with an antral ulcer. 3. Moderate duodenitis with ulceration. 4. Normal appearing vocal cords, normal appearing oropharynx, normal appearing hypopharynx, normal appearing esophagus. PROCEDURE: Esophagogastroduodenoscopy with antral biopsy. SURGEON: Ghanshyam Hill MD TECHNICAL SUPERVISOR: None. BLOOD LOSS: Minimal. ANESTHESIA: IV sedation. COMPLICATIONS: None. DESCRIPTION OF PROCEDURE: The patient was seen in his ICU bed. IV sedation was induced by the anesthesia staff. A bite block was inserted. A gastroscope was inserted into the mouth. It was advanced easily into the hypopharynx. The esophagus was easily intubated as were the stomach and duodenum. Upon withdrawal, retroflexed and angulus views were obtained. Antral biopsies were obtained to rule out H. pylori. The endoscope was then withdrawn under direct vision. 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 I saw no diffuse inflammation, which I would expect with a caustic oral ingestion. PLAN: The patient will be dismissed home on proton pump inhibitor. I will see him in the office in 2 to 3 weeks to review the results of his biopsy. TRANSINT:[id number] Voice Confirmation ID: [id number] DOCUMENT ID: [id number] GHANSHYAM HILL MD at 1050 CC: DOMENICA LOPEZ and YAYA IZQUIERDO MD [id number] DICTATION DATE: 10/25/20 1445 CLERICAL ORDER FILLER: 10/25/202025 DIS IN 10/25/20 [facility] [address] [place] [address]
--- NOTE | 2020-10-26 13:29 | CN ---
PATIENT NAME:ENID BANKS MEDICAL RECORD: [id number] : 89 LOCATION:[facility].2304 ADMIT DATE: 10/24/20 ACCOUNT: [id number] CONSULTING PHYSICIAN: NOLVIA COLORADO MD REFERRING PHYSICIAN: DOMENICA LOPEZ MD DATE OF CONSULTATION: 10/25/2020 IDENTIFYING DATA: The patient is 25 years old and he was admitted to the hospital on a voluntary basis secondary to an accidental ingestion. CHIEF COMPLAINT: None. HISTORY OF PRESENT ILLNESS: The patient is somewhat sedated. He just underwent an EGD procedure and is sedated, but awake enough to interview reliably. The EGD showed no evidence of a caustic material being ingested and his lab does not show any evidence of that either. He is denying that he wants to harm himself. He insists that what happened was accidental. His grandmother says she thinks he wants to kill himself because he is about to go to alf, but he says that is not true. He has no history of trying to kill himself and he does not think that his methamphetamine or marijuana use is a problem. IMPRESSION: 1. Polysubstance abuse. 2. Probable malingering. PLAN: At this time, the patient shows no evidence of direct or acute dangerousness to himself or others. He may be discharged whenever it is medically appropriate to do so. Followup is a little problematic. I think that he could benefit from outpatient psychiatric care and particularly substance abuse treatment, but he is rejecting both at this time. TRANSINT:[id number] Voice Confirmation ID: [id number] DOCUMENT ID: [id number] NOLVIA COLOARDO MD at 1329 CC: [id number] DICTATION DATE: 10/25/20 1126 SEWING MACHINE BOBBIN WINDER: 10/25/20 1601 DIS IN 10/25/20 [id number] [place] [address]
== END 2020-10-25 13:48 | disposition home or self-care (01) ==
LOC: D.ER 07:42 → D.ICU 08:54 → OBSVTIME 08:54 → D.ICU 08:54
PROVIDERS: Family Medicine; Surgery; ADMIT Emergency Medicine; ATTEND Emergency Medicine
DX: T54.3X1A Toxic effect of corrosive alkalis and alkali-like substances, accidental (unintentional), initial encounter (principal); G40.909 Epilepsy, unspecified, not intractable, without status epilepticus; F19.10 Other psychoactive substance abuse, uncomplicated